=== PATIENT | female | born 1980 | race Caucasian/White ===

== ENCOUNTER 2018-05-01 11:14 | Emergency (ER) | payer OTHER ==
[~2018-05-01] VITALS: Ht 147.3 cm; Wt 81.6 kg
[2018-05-01] MEDS ORDERED: TRINESSA LO TA1 EACH (11:53)
[2018-05-01] MEDS ORDERED: TOPROL XL25 M1 PO (11:53)
== END 2018-05-01 15:24 | disposition home or self-care (01) ==
LOC: ER 11:14
DX: K52.9 Noninfective gastroenteritis and colitis, unspecified (principal)

== ENCOUNTER 2021-04-06 03:27 | Emergency (ER) | payer OTHER ==
[~2021-04-06] VITALS: Ht 147.3 cm; Wt 78.0 kg
[~2021-04-06 03:27] MED LIST: TOPROL XL25 M1 PO; TRINESSA LO TA1 EACH
[2021-04-06] MEDS ORDERED: LIPITOR20 MG (03:44)
[2021-04-06] MEDS ORDERED: RELPAX40 MG (03:44)
== END 2021-04-06 05:41 | disposition home or self-care (01) ==
LOC: ER 03:27
DX: R07.89 Other chest pain (principal); M94.0 Chondrocostal junction syndrome [Tietze]; Z88.6 Allergy status to analgesic agent; Z88.0 Allergy status to penicillin; Z88.9 Allergy status to unspecified drugs, medicaments and biological substances